=== PATIENT | male | born 1995 ===

== ENCOUNTER 2021-03-18 16:52 | Emergency (ER) | payer OTHER, MEDICAID, SELFPAY ==
--- NOTE | 2021-03-18 17:13 | ED.AMS ---
HPI - Altered Mental Status General Chief Complaint: ETOH/Substance Use Stated Complaint: drug use Time Seen by Provider: 03/18/21 17:12 Source: patient Mode of arrival: EMS History of Present Illness HPI narrative: Bystander called EMS for [place] mall lying on [place] with vomiting . EMS suspected substance abuse. Per patient he did not do any drugs a, he had a marijuana Brownie and he guess he ate more than usual Related Data Allergies Allergy/AdvReac Type Severity Reaction Status Date / Time No Known Allergies Allergy Verified 03/18/21 17:16 Review of Systems Review of Systems: Yes all other systems are reviewed and are negative [facility] Social History Social History Advance Directives: No Advance Directives Information Provided: No Physical Exam Vital Signs: Vital Signs: Last Vital Signs Pulse 61 03/18/21 22:45 Resp 18 03/18/21 22:45 BP 124/58 L 03/18/21 22:45 Pulse Ox 99 03/18/21 22:45 Body Mass Index 25.1 Appearance: Alert. And awake No acute distress. Eyes: PERRLA, No Nystagmus ENT: Pharynx normal. Oral Mucosa moist Neck: Normal inspection. Neck supple. CVS: Normal heart rate and rhythm. Pulses normal. Respiratory: No respiratory distress. Equal air entry bilateral, no wheezing/rales/rhonchi Abdomen: Soft and nontender. Bowel sounds are present, no mass palpable, no CVA tenderness Skin: Skin warm and dry. Normal skin color. Normal skin turgor. Extremities: No lower extremity edema. No calf tenderness Neuro: Oriented X 3. No motor deficit. MDM - Altered Mental Status MDM Narrative Medical decision making narrative: Patient felt better after staying here for few hours had p.o. fluids ambulated in the ER in steady gait drug screen showed cannabis only discharge patient home with family Differential Diagnosis Differential diagnosis: Likely altered mental status and overdose polysubstance Lab Data Attestation: I reviewed the patient's lab results. Labs: Lab Results 03/18/21 Range/Units 22:25 Urine Opiates Screen Not Detected (Not Detect) Urine Fentanyl Screen Not Detected (Not Detect) Ur Barbiturates Screen Not Detected (Not Detect) Ur Phencyclidine Scrn Not Detected (Not Detect) Ur Amphetamines Screen Not Detected (Not Detect) U Benzodiazepines Scrn Not Detected (Not Detect) Urine Cocaine Screen Not Detected (Not Detect) U Marijuana (THC) Screen POSITIVE H (Not Detect) Discharge Plan Discharge Clinical Impression: Cannabis abuse Patient Disposition: Home, Self-Care Instructions: Cannabis Abuse (ED) Additional Instructions: Avoid using cannabis Interventions: ED Discharge Assessment Last Done: 03/18/21 23:07 Discharge Date/Time: 03/18/21 23:11
[2021-03-18 17:16] VITALS: BP 112/58; PULSE 88; O2SAT 96; BMI 25.1
[2021-03-18] MEDS: Ondansetron ODT 4 MG TAB.RAPDIS TRANSLINGU (17:45)
[2021-03-18 17:51] VITALS: BP 117/58; PULSE 64; RESP 18; O2SAT 97
[2021-03-18 20:00] VITALS: BP 117/58; PULSE 64; RESP 18; O2SAT 97
--- NOTE | 2021-03-18 22:39 | PC.NURSE ---
medical unit secretary answered a phone call from the patients parents and informed them that patient was here at the hospital. Evidently patient per parents had been missing.
[2021-03-18 22:43] LABS: Amphetamine Screen Urine Not Detected (Not Detect); Barbiturates, Urine Not Detected (Not Detect); Benzodiazepines Screen Urine Not Detected (Not Detect); Cannabinoid Screen Urine POSITIVE (Not Detect); Cocaine Screen Urine Not Detected (Not Detect); Fentanyl, urine Not Detected (Not Detect); Opiate Screen Urine Not Detected (Not Detect); Phencyclidine Screen Urine Not Detected (Not Detect)
[2021-03-18 22:45] VITALS: BP 124/58; PULSE 61; RESP 18; O2SAT 99
== END 2021-03-18 23:11 | disposition home or self-care (01) ==
PROVIDERS: Emergency Provider Internal Medicine
DX: F12.10 Cannabis abuse, uncomplicated (principal); Z71.51 Drug abuse counseling and surveillance of drug abuser; Z79.899 Other long term (current) drug therapy
CPT/HCPCS: 80307; 99285